=== PATIENT | female | born 1990 ===

== ENCOUNTER 2024-09-22 02:23 | Inpatient (IN) | payer BC ==
[2024-09-22] MEDS: Penicillin G Potassium 5 MILLUNITS in Sodium Chloride 0.9% 100 ML IV ONE (02:46)
[2024-09-22] MEDS: Lactated Ringers 1,000 ML IV SCH (02:46)
[2024-09-22 02:51] LABS: PLATELET COUNT,PLT 165.0 10^3/uL (150-450); RED BLOOD CELL COUNT 4.74 10^6/uL (4.2-5.4); WHITE BLOOD CELL COUNT,WBC 10.1 10^3/uL (5.0-10.0)
[2024-09-22] MEDS ORDERED: Sodium Chloride 0.9% 10 ML Syringe FLUSH PRN ×2 (03:04→06:10)
[2024-09-22] MEDS ORDERED: fentaNYL 100 MCG/2 ML SDV IVPUSH PRN (03:04)
[2024-09-22] MEDS ORDERED: Carboprost Tromethamine 250 MCG/1 ML Amp IM PRN ×2 (03:04→06:10)
[2024-09-22] MEDS ORDERED: Oxytocin/Normal Saline 30 UNIT/500 ML BAG IV SCH (03:15)
[2024-09-22] MEDS: Ondansetron 4 MG/2 ML SDV IVPUSH PRN (03:19)
[2024-09-22] MEDS: Oxytocin/Normal Saline 30 UNIT/500 ML BAG IV SCH (05:54)
[2024-09-22] MEDS ORDERED: Oxytocin 10 Units/1 ML SDV IM PRN (06:10)
[2024-09-22] MEDS ORDERED: Acetaminophen/oxyCODONE 325-5 MG Tab PO PRN (06:10)
[2024-09-22] MEDS: Benzocaine/Menthol 20%-0.5% Spray 78 GM Cannister TOP PRN (07:32)
[2024-09-22] MEDS: Prenatal Multivitamin with Calcium/Folic Acid/Iron Tab PO SCH (07:32)
[2024-09-22] MEDS: Witch Hazel Medicated Pads 100/Jar TOP PRN (07:46)
[2024-09-22] MEDS: Lactated Ringers 1,000 ML IV ONE (20:20)
== END 2024-09-23 09:50 | disposition home or self-care (01) | DRG 560 ==
LOC: DL.OBCHECK 02:23 → DL.OB 02:44 → OBSVTOIN 05:23 → DL.OB 05:23
PROVIDERS: ADMIT Student in an Organized Health Care Education/Training Program; ATTEND Student in an Organized Health Care Education/Training Program
PROC: 10907ZC Drainage of Amniotic Fluid, Therapeutic from Products of Conception, Via Natural or Artificial Opening (ICD-10-PCS; principal; 2024-09-22)
PROC: 10E0XZZ Delivery of Products of Conception, External Approach (ICD-10-PCS; 2024-09-22)
PROC: 4A1HXCZ Monitoring of Products of Conception, Cardiac Rate, External Approach (ICD-10-PCS; 2024-09-22)
PROC: 0KQM0ZZ Repair Perineum Muscle, Open Approach (ICD-10-PCS; 2024-09-22)
PROC: 3E0R3BZ Introduction of Anesthetic Agent into Spinal Canal, Percutaneous Approach (ICD-10-PCS; 2024-09-22)
PROC: 00HU33Z Insertion of Infusion Device into Spinal Canal, Percutaneous Approach (ICD-10-PCS; 2024-09-22)
PROC: 3E03329 Introduction of Other Anti-infective into Peripheral Vein, Percutaneous Approach (ICD-10-PCS; 2024-09-22)
DX: O99.824 Streptococcus B carrier state complicating childbirth (principal); O99.344 Other mental disorders complicating childbirth; F41.9 Anxiety disorder, unspecified; Z3A.36 36 weeks gestation of pregnancy; Z37.0 Single live birth; F32.A Depression, unspecified; O71.89 Other specified obstetric trauma; O69.81X0 Labor and delivery complicated by cord around neck, without compression, not applicable or unspecified
CPT/HCPCS: 36415; 51701; 59409; 85014; 85018; 85027; A9270-GY; J2405; J2540; J2590; J7120